=== PATIENT | female | born 1950 | race Caucasian/White ===

== ENCOUNTER 2024-12-13 12:08 | Outpatient (AMB) | payer BC, MEDICARE, SELFPAY ==
--- NOTE | 2024-12-13 12:18 | A.OFFVIS_ITS ---
Vital Signs 12/13/24 12:25 Height 5 ft 1.5 in Weight 187 lb 6.287 oz BMI 34.8 BP 130/80 Blood Pressure Location Rt brachial Position Sitting Pulse 94 Pulse Source Pulse Oximeter Pulse Oximetry (%) 97 Oxygen Delivery Method Room Air Intake Visit Reasons: Obesity Intake Note: New patient externally referred by PCP for Obesity management. Manufacturers Service Representative Required: No Accompanied by: Self / Same As Patient Allergies Opioids - Morphine Analogues Allergy (Verified 12/13/24 12:26) hives Medication List - Last Reconciled 12/13/24 by John Prince MD cholecalciferol (vitamin D3) 50 mcg PO DAILY lisinopril 10 mg PO DAILY lorazepam 0.5 mg PO DAILY PRN methocarbamol 750 mg PO Q8H pravastatin 20 mg PO DAILY tramadol 50 mg PO BID PRN HPI Comments Details: This is a 74-year-old female sent to endocrinology for evaluation of obesity. Doshi d breast ca and gained 30 lbs for 5 yrs . Off medication for 1 yr Wt stable over last yr . Patient has tried diets of wt watchers, , Nutrisystem, watching carbs . Patient has not seen warehouse foreman. The patient has tried weight loss medications of Phen/Fen in distant past . There are no symptoms of hypothyroidism or [place] syndrome. No snoring at nigt. No thyroid problems. [facility] Medical History (Updated 12/13/24 @ 13:00 by John Prince MD) Obesity Surgical History Hx of breast reconstruction Hx of right mastectomy History of surgery History of oophorectomy, unilateral History of total hip replacement History of tubal ligation Hx of cholecystectomy Physical Exam Vital Signs: Last Vital Signs Pulse 94 12/13/24 12:25 BP 130/80 12/13/24 12:25 Pulse Ox 97 12/13/24 12:25 Oxygen Delivery Method Room Air 12/13/24 12:25 BMI result Body Mass Index 34.8 Const Other: No cushingoid features. Thyroid gland is normal size weighs about 15 g. There are no thyroid nodules palpated Assessment & Plan Assessment & Plan (1) Obesity: Code(s): E66.9 - Obesity, unspecified Category: Medical Plan: This is a 74-year-old white female referred to endocrinology for obesity. There are no clear underlying endocrine etiology. Plan is to check TSH and free T4. Will also refer patient to warehouse foreman. Will discuss with patient use of weight loss medications including G LP 1 and G LP/GI P. We will hold off on this for now but may consider this in the future. Patient will follow up with Denise Khan NP in 1 month Orders: Orders Free T4 (Free Thyroxine) Today E66.9 - Obesity, unspecified Thyroid Stimulating Hormone Today E66.9 - Obesity, unspecified Referrals Nutrition/Dietitian Referral E66.9 - Obesity, unspecified Coding Level of Care Code New Pt Level 4 (34162) Diagnoses Obesity E66.9
[2024-12-13 12:25] VITALS: BP 130/80; PULSE 94; O2SAT 97; BMI 34.8
--- OUTSIDE RECORDS SUMMARY | 2024-12-13 13:46 | XMS_ITS | Clinical Summary ---
Author Organization [facility] Facility Address [address] [place] [id number] Care Team Providers Care Shot Tube Machine Tender Name Role Phone Minoo De Paz MD Primary Care Provider Allergies Active Allergy Reactions Criticality Noted Date Comments Bee Venom Anaphylaxis High 09/13/2018 Cephalexin 01/07/2022 Other reaction(s): rash Hydrocodone-Acetaminop hen Hives 11/11/2016 Other reaction(s): hives, itching Iodinated Contrast Media Hives 12/09/2016 Other reaction(s): hives Morphine Swelling,Other (see comments) 11/11/2016 Sulfa Antibiotics 01/07/2022 Other reaction(s): Patient reported, rash Medications anastrozole (ARIMIDEX) 1 MG chemo tablet Take 1 mg by mouth daily 07/11/2020 Active LORazepam (ATIVAN) 0.5 MG tablet Take 0.5 mg by mouth every night 11/19/2020 Active pravastatin (PRAVACHOL) 20 MG tablet Take 20 mg by mouth daily Active traMADol (ULTRAM) 50 MG tablet Take 50 mg by mouth every 8 (eight) hours if needed 11/25/2020 Active lisinopril 10 MG tablet Take 10 mg by mouth 1 (one) time each day Active cholecalciferol (VITAMIN D-3) 50 MCG (2000 UT) capsule Take 1 capsule (2,000 Units total) by mouth 1 (one) time each day 90 capsule 5 08/30/2024 Active Active Problems Problem Noted Date Diagnosed Date Hypertension 01/07/2022 Major depression in remission 01/07/2022 Migraine with typical aura 01/07/2022 Restless legs 01/07/2022 Venous varices 01/07/2022 Hematuria, not otherwise specified 12/09/2021 Renal scarring 12/09/2021 Malignant tumor of breast 11/30/2018 Overview (12/08/2021): Overview: 09/2018 Right, DCIS Stage 3a chronic kidney disease 07/28/2018 Vitamin D deficiency, not otherwise specified History of gastrointestinal bleed 07/28/2018 Osteoarthritis 07/28/2018 Overview (12/08/2021): Overview: Cervical,Thoracic & Lumbosacral Spine, Hips, Malignant neoplasm of middle lobe of lung 2016 Dyslipidemia 11/11/2016 Resolved Problems Problem Noted Date Diagnosed Date Resolved Date Absence of breast 01/07/2022 01/05/2023 Benign polyp of colon 01/07/20222022 Chronic thoracic back pain 01/07/2022 0 01/05/2023 Cramp 01/07/2022 01/05/2023 Cyst of pancreas 01/07/2022 01/05/2023 Degenerative joint disease i nvolving multiple joints 01/07/2022 01/05/2023 Insomnia 01/07/2022 01/05/2023 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 01/05/2023 H/O: malignant neoplasm 01/07/2022 03/0 05/2023 Hypertensive heart disease w ithout heart failure 12/18/2020 12/09/2021 Diverticular disease 07/28/2018 023 Depressive disorder 07/28/2018 01/06/20 23 History of squamous cell carcinoma 07/28/2018 01/05/2023 Overview (12/08/2021): Overview: Right Middle Lobe, T1a, N0, RML Lobectomy, Overview: leg History of repair of hip joint 07/28/2018 01/05/2023 Overview (12/08/2021): Overview: Right Hip pain 11/27/2016 01/05/2023 Adenocarcinoma of right lung 11/26/2016 01/05/2023 Immunizations Name Administration Dates Next Due Influenza Split High Dose Pr eservative Free IM 08/01/2019,10/10/2017,08/02/2013 Pneumococcal Conjugate 13-Valent 10/10/2017 Family History Medical History Relation Comments Cancer Father kidney cancer Diabetes Father Kidney disease Father kidney cancer Hypertension Sibling Relation Status Comments Father Mother Alive Sibling Social History Tobacco Use Types Packs/Day Years Used Date Smoking Tobacco: Former Cigarettes Smokeless Tobacco: Former Comments:Smoking History Inf o:Every day Alcohol Use Standard Drinks/Week Comments No 0 (1 standard drink = 0.6 oz pur e alcohol) Comments Unknown Sex and Gender Information Value Date Recorded Sex Assigned at Not on file Legal Sex Female 5:08 PM EST Gender Identity Not on file Sexual Orientation Not on file Last Filed Vital Signs Vital Sign Reading Time Taken Comments Blood Pressure 136/98 01/06/2023 10:19 AM EST Pulse 98 01/06/2023 10:19 AM EST Temperature - - Respiratory Rate - - Oxygen Saturation 97% 01/06/2023 10:19 AM EST Inhaled Oxygen Concentration - - Weight 86.4 kg (190 lb 6.4 oz) 01/06/2023 10:19 AM EST Height 157.5 cm (5' 2 ) 01/06/2023 10:19 AM EST Body Mass Index 34.82 01/06/2023 10:19 AM EST Plan of Treatment Health Maintenance Due Date Last Done Comments Breast Cancer Screening 1950 Colorectal Cancer Screening: Annual FOBT 2000 Colorectal Cancer Screening: Colonoscopy 2000 Colorectal Cancer Screening: Sigmoidoscopy 2000 Hepatitis B Vaccine (1 of 3 - Risk 3-dose series) 2011 Influenza Vaccine (#1) 2024 0, 08/03/2019, 08/01/2019, Additional history exists Pneumococcal Vaccine: 65+ Years Completed 09/01/2019, 11/30/2017, 11/30/2017, Additional history exists Insurance [facility] Care Teams Shot Tube Machine Tender Relationship Specialty Start Date End Date Minoo De Paz MD [address] [place] [id number] PCP - General Internal Medicine 12/18/20
--- OUTSIDE RECORDS SUMMARY | 2024-12-13 13:46 | XMS_ITS | Clinical Summary ---
Author Organization [facility] Address [address] [place] [address] Phone Care Team Providers Care Industrial Therapist Name Role Phone Minoo De Paz MD Primary Care Provider Allergies Active Allergy Reactions Criticality Noted Date Comments Bee Venom Protein (Honey Bee) Anaphylaxis High 09/13 Hydrocodone-Acetaminophen 07/28/2018 Iodinated Contrast Media 11/20/2020 Morphine 07/28/2018 Medications cholecalciferol (VITAMIN D-3) 50 mcg (2,000 unit) tablet Take 1 tablet (2,000 Units total) by mouth 1 (one) time each day. Active LISINOPRIL ORAL Take by mouth. Active LORazepam (ATIVAN) 0.5 mg tablet Take 1 tablet (0.5 mg total) by mouth every 6 hours as needed. Max Daily Amount: 2 mg Active pravastatin (PRAVACHOL) 20 mg tablet Take 1 tablet (20 mg total) by mouth 1 (one) time each day. 06/07/2022 Active traMADoL (ULTRAM) 50 mg tablet Take 1 tablet (50 mg total) by mouth every 6 hours as needed for moderate pain or severe pain. 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 ? Secondary to PCEA. Epidural capped. Dc COLORER and transition to PO pain meds. Prefers not to take NSAIDS given h/o CKD. CV: Telemetry. Home Crestor. Pulm: CT to WS, check 4h CXR. Ambulate. Nebs prn. Wean O2. GI: ADAT. Bowel regimen. Antiemetics prn. : Dc Rose - DTV. K/Mg scales. Heme: SQ Heparin ppx. Hct 34 (38.6) - will repeat late AM and if stable dc daniella. Malignant neoplasm of middle lobe of right lung 12/08/2016 Bilateral hip pain 11/27/2016 Hyperlipidemia 11/11/2016 Encounters Date Type Department Care Team Description 12/11/2024 9:53 AM [facility] - 12/11/2024 11:59 PM [facility] Hospital Encounter [facility] CT Scan [address] [place] [phone] 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) Discharge Disposition: Home or Self Care 12/11/2024 9:35 AM EST - 12/11/2024 11:59 PM [facility] [address] [place] [phone] Encounter for screening mammogram for breast cancer Discharge Disposition: Home or Self Care from Last 3 Months Immunizations Name Administration Dates Next Due Pfizer SARS-CoV-2 COVID-19, mRNA, LNP-S, preservative free 01/15/2021,12/27/2020 Surgical History Surgery Date Site/Laterality Comments MASTECTOMY Right 2018 Medical History Medical History Date Comments Vitamin D deficiency 07/28/2018 DX:Vitamin D deficiency Osteoarthritis of spine 07/28/2018 DX:Osteo arthritis of spine;COMMENT:Cervical, Thoracic & Lumbosacral Depression 07/28/2018 DX:Depression Diverticulosis 07/28/2018 DX:Diverticulosi s ESRD (end stage renal diseas e) ([facility]) 07/28/2018 DX:ESRD (end stage renal dis ease) ([facility]) Hip joint replacement status 07/28/2018 DX: Hip joint replacement status History of GI bleed 07/28/2018 DX:History o f GI bleed Breast cancer ([facility]) Social History Tobacco Use Types Packs/Day Years Used Date Smoking Tobacco: Former Cigarettes Q uit: 04/18/2017 Smokeless Tobacco: Never Alcohol Use Standard Drinks/Week Comments No 0 (1 standard drink = 0.6 oz pur e alcohol) Comments No Sex and Gender Information Value Date Recorded Sex Assigned at Not on file Legal Sex Female 8:39 AM EST Gender Identity Not on file Sexual Orientation Not on file Obstetrics History Para Term AB IAB SAB Ectopic Multiple Livin g Live Births 2 Last Filed Vital Signs Vital Sign Reading Time Taken Comments Blood Pressure 131/65 06/14/2024 11:13 AM EDT Sitting Left arm Pulse 78 06/14/2024 11:13 AM EDT Temperature - - Respiratory Rate - - Oxygen Saturation - - Inhaled Oxygen Concentration - - Weight 86.2 kg (190 lb) 12/11/2024 9:42 AM EST Height 157.5 cm (5' 2 ) 12/11/2024 9:42 AM EST Body Mass Index 34.75 12/11/2024 9:42 AM EST Plan of Treatment Upcoming Encounters Date Type Department Care Team (Late st Contact Info) Description 12/27/2024 11:30 AM EST Office Visit [facility] Hematology Oncology [address] [place] [phone] Carolyn Perez, [address] [place] [address] Health Maintenance Due Date Last Done Comments Hepatitis A Vaccines (1 of 2 - Risk 2-dose series) 1970 Hepatitis B Vaccines (1 of 3 - Risk 3-dose series) 2011 RSV Immunization Patients 60+ Years Old (1 - Risk 60-74 years 1-dose series) 2011 DTaP,Tdap,and Td Vaccines (2 - Tdap) 01/31/2019 01/31/2009 COVID-19 Vaccine (3 - Pfizer risk series) 02/12/2021 01/15/2021, 12/27/2020 Cholesterol Screening (Lipid Panel) 10/09/2022 Colorectal Cancer Screening: Colonoscopy 10/09/2022 Depression Screening 10/09/2022 Falls Risk Assessment 10/09/2022 Hepatitis C Screening 10/09/2022 Lung Cancer Screening (Low Dose CT) 10/09/2022 Medicare Annual Wellness Visit 10/09/2022 Social Influencers of Health Screening 10/09/2022 Influenza Vaccine (#1) 2024 , 08/27/2022, 08/15/2021, Additional history exists Hypertension/CHF/CAD Annual BMP Blood Test 12/11/2024 Breast Cancer Screening 12/11/2026 12/11/2024, 08/31 Osteoporosis Screening (Bone Density Screening) 12/10/2033 12/10/2023, 12/09/2022, 12/08/2021, Additional history exists Pneumococcal Vaccine: 50+ Years Completed 09/01/2019, 11/30/2017, 10/10/2017 Zoster Vaccines Completed 05/15/2024, 02/25/2024 HIB Vaccines Aged Out No longer eligi ble based on patient's age to complete this topic HPV Vaccines Aged Out No longer eligi ble based on patient's age to complete this topic IPV Vaccines Aged Out No longer eligi ble based on patient's age to complete this topic MMR Vaccines Aged Out No longer eligi ble based on patient's age to complete this topic Meningococcal ACWY Vaccine Aged Out N o longer eligible based on patient's age to complete this topic Meningococcal B Vacine Aged Out No lo nger eligible based on patient's age to complete this topic RSV Immunization Patients Under 20 months Aged Out No longer eligible based on patient's age to complete this topic Varicella Vaccines Aged Out No longer eligible based on patient's age to complete this topic Procedures Procedure Name Priority Date/Time Associated Diagnosis Comments CT CHEST WO CONTRAST Routine 12/11/2024 10:34 AM EST 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) MG MAMMO DIGITAL SCREENING W KYLER LEFT Routine 12/11/2024 9:48 AM EST Encounter for screening mammogram for breast cancer HENRI DEXA AXIAL SKELETON Routine 12/10/2023 12:03 PM EST Encounter for screening for osteoporosis from Last 3 Months or Most Recently Relevant to Health Maintenance Results * CT Chest wo Contrast (12/11/2024 10:34 AM EST) Anatomical Region Laterality Modality Body Computed Tomogra phy 12/12/2024 4:16 AM EST Impressions 12/12/2024 4:29 AM EST Right middle lobectomy with scattered groundglass nodules; similar to most recent prior. -------- FINAL REPORT -------- Dictated By: Itzel Carr Dictated Date: 12/12/2024 04:16 ET Assigned Physician: Itzel Carr Reviewed and Electronically Signed By: Itzel Carr Signed Date: 12/12/2024 04:29 ET Workstation ID: [id number] Transcribed By: Self Edit Transcribed Date: 12/12/2024 04:16 ET Narrative 12/12/2024 4:29 AM EST INDICATION: ??Non-small cell lung cancer, monitor. ??History of right-sided DCIS and right lung cancer status post right middle lobe wedge resection. TECHNIQUE: Multiple contiguous axial CT images were obtained of the chest without intravenous contrast. ??Multiplanar reformats were created and interpreted. The CT scanner utilized low-dose iterative reconstruction technique with automatic exposure control based on patient size. DLP: ??841.09 mGy-cm COMPARISON: ??December 2023. ??May 2023. FINDINGS: Lack of intravenous contrast limits evaluation of the mackenzie, vascular structures and abdominal viscera. ?? LUNGS/PLEURA: Central airways are patent. ??Postsurgical appearance right middle lobe. Bilateral groundglass pulmonary nodules similar to prior. ??For example: 9 mm groundglass nodule right upper lobe (image 68); similar to 2022 9 mm groundglass nodule/opacity in the right lower lobe (image 133); new from 2022 and similar to December 2023 6 mm groundglass nodule left lung apex (image 40); similar to 2022 7 mm groundglass nodule right lung apex (image 39); similar to 2022 ?? MEDIASTINUM: Thyroid gland is unremarkable. ??No enlarged mediastinal lymph nodes. ??Nonenlarged right hilar lymph nodes. ??Nonenlarged pericardial lymph nodes. ??Mild coronary artery calcifications. MISCELLANEOUS: Right breast implant. ??No axillary lymphadenopathy. UPPER ABDOMEN: ??Hepatic steatosis. ??Status post cholecystectomy. BONES AND SOFT TISSUES: Scattered degenerative changes Procedure Note Itzel Carr MD - 12/12/2024 INDICATION: Non-small cell lung cancer, monitor. History of right-sidedDCIS and right lung cancer status post right middle lobe wedgeresection. TECHNIQUE: Multiple contiguous axial CT images were obtained of the chestwithout intravenous contrast. Multiplanar reformats were created andinterpreted. The CT scanner utilized low-dose iterative reconstructiontechnique with automatic exposure control based on patient size. DLP: 841.09 mGy-cm COMPARISON: December 2023. May 2023. FINDINGS: Lack of intravenous contrast limits evaluation of the mackenzie,vascular structures and abdominal viscera. LUNGS/PLEURA: Central airways are patent. Postsurgical appearance rightmiddle lobe. Bilateral groundglass pulmonary nodules similar to prior. For example: 9 mm groundglass nodule right upper lobe (image 68); similar to 2022 9 mm groundglass nodule/opacity in the right lower lobe (image 133); newfrom 2022 and similar to December 2023 6 mm groundglass nodule left lung apex (image 40); similar to 2022 7 mm groundglass nodule right lung apex (image 39); similar to 2022 MEDIASTINUM: Thyroid gland is unremarkable. No enlarged mediastinal lymphnodes. Nonenlarged right hilar lymph nodes. Nonenlarged pericardiallymph nodes. Mild coronary artery calcifications. MISCELLANEOUS: Right breast implant. No axillary lymphadenopathy. UPPER ABDOMEN: Hepatic steatosis. Status post cholecystectomy. BONES AND SOFT TISSUES: Scattered degenerative changes IMPRESSION: Right middle lobectomy with scattered groundglass nodules; similar to mostrecent prior. -------- FINAL REPORT -------- Dictated By: Itzel Carr Dictated Date: 12/12/2024 04:16 ET Assigned Physician: Itzel Carr Reviewed and Electronically Signed By: Itzel Carr Signed Date: 12/12/2024 04:29 ET Workstation ID: [id number] Transcribed By: Self Edit Transcribed Date: 12/12/2024 04:16 ET Carolyn Perez DO IMG CT PROCEDURES Fin al Result * MG Mammo Digital Screening w Kyler Left (12/11/2024 9:48 AM EST) Anatomical Region Laterality Modality Breast Left Mammography 12/12/2024 12:4 8 PM EST Impressions 12/12/2024 12:54 PM EST No mammographic evidence of malignancy. BI-RADS: ??Category 1: Negative RECOMMENDATION(S): 1: Routine screening mammogram LEFT in 1 year. -------- FINAL REPORT -------- Dictated By: COLE AUGUSTE Dictated Date: 12/12/2024 12:48 ET Assigned Physician: COLE AUGUSTE Reviewed and Electronically Signed By: COLE AUGUSTE Signed Date: 12/12/2024 12:54 ET Workstation ID: [id number] Transcribed By: Self Edit Transcribed Date: 12/12/2024 12:48 ET Narrative 12/12/2024 12:54 PM EST EXAM: MG MAMMO DIGITAL SCREENING W KYLER LEFT EXAM DATE AND TIME: 12/11/2024 9:38 AM HISTORY: screening; the patient has a history of right breast cancer treated with mastectomy in 2018. COMPARISON: 12/10/2023 through 06/14/2020 TECHNIQUE: Left digital breast tomosynthesis was performed in the MLO projection. Computer aided detection with St[employer] 3D 3.1 was employed. TISSUE DENSITY: b: There are scattered areas of fibroglandular density. FINDINGS: No suspicious masses, grouped microcalcifications, or areas of architectural distortion are seen. ??The skin and vascularity are unremarkable. Procedure Note Cole Auguste MD - 12/12/2024 EXAM: MG MAMMO DIGITAL SCREENING W KYLER LEFT EXAM DATE AND TIME: 12/11/2024 9:38 AM HISTORY: screening; the patient has a history of right breast cancertreated with mastectomy in 2018. COMPARISON: 12/10/2023 through 06/14/2020 TECHNIQUE: Left digital breast tomosynthesis was performed in the MLOprojection. Computer aided detection with Strevus 3D 3.1 wasemployed. TISSUE DENSITY: b: There are scattered areas of fibroglandular density. FINDINGS: No suspicious masses, grouped microcalcifications, or areas ofarchitectural distortion are seen. The skin and vascularity areunremarkable. IMPRESSION: No mammographic evidence of malignancy. BI-RADS: Category 1: Negative RECOMMENDATION(S): 1: Routine screening mammogram LEFT in 1 year. -------- FINAL REPORT -------- Dictated By: COLE AUGUSTE Dictated Date: 12/12/2024 12:48 ET Assigned Physician: COLE AUGUSTE Reviewed and Electronically Signed By: COLE AUGUSTE Signed Date: 12/12/2024 12:54 ET Workstation ID: [id number] Transcribed By: Self Edit Transcribed Date: 12/12/2024 12:48 ET us Self Referral Sppl IMG BI PROCEDURES Final Resul t * HENRI DEXA AXIAL SKELETON (12/10/2023 12:03 PM EST) Anatomical Region Laterality Modality Mammography 12/10/2023 9:21 AM EST Narrative 12/10/2023 12:03 PM EST [facility] Diagnostic Imaging Department [address] [place] [id number] Patient: ??TELMA RODRÍGUEZ ?/Age/Sex: 1950 - 73 - F Unit#: ??[id number] ? Location/Status: ??SPDIMAM/REG CLI ? Mnemonic/Ordering Site: ??MAMDEXAAX/SPMAM Ordering Physician: ??CAROLYN PEREZ Henri Dexa Axial Skeleton - 12/10/23 - 1019 Report Status:Signed HISTORY: ??The patient is a 73-year-old postmenopausal female with clinical concern for metabolic bone disease. ??The patient is undergone previous bilateral hip replacement surgery. FINDINGS: ??Dual energy x-ray absorptiometry of the lumbar spine is performed. The mean bone mineral density at L1-3 is 1.067 gm/cm2 which is 91% of that of young normals and 103% of that of age matched controls. This yields a T-score of -0.9 and a Z-score of 0.2 and there is therefore no evidence of osteoporosis or osteopenia here. IMPRESSION: ?? There is no evidence of osteoporosis or osteopenia. ??There has been a decrease of 0.3% in bone mineral density in the lumbar spine since the prior examination of 12/08/2021. Code 07849 Dictating Physician: ??ANAHI MATHIAS MD Electronically Signed by: ??ANAHI MATHIAS MD Dic Date/Time: ??12/10/23 1201 Sign date/Time: ??12/10/23 1203 Procedure Note Anahi Mathias MD - 06/19/2024 [facility] Diagnostic Imaging Department [address] [place] [address] Patient: KELLITELMA D.O.B./Age/Sex: 1950 - 73 - F Unit#: [id number] Location/Status: SPDIMAM/REG CLI Mnemonic/Ordering Site: MAMDEXAAX/SPMAM Ordering Physician: CAROLYN PEREZ Henri Dexa Axial Skeleton - 12/10/23 - 1019 Report Status:Signed HISTORY: The patient is a 73-year-old postmenopausal female withclinical concern for metabolic bone disease. The patient is undergone previousbilateral hip replacement surgery. FINDINGS: Dual energy x-ray absorptiometry of the lumbar spine isperformed. The mean bone mineral density at L1-3 is 1.067 gm/cm2 which is 91% of thatof young normals and 103% of that of age matched controls. This yields aT-score of -0.9 and a Z-score of 0.2 and there is therefore no evidence ofosteoporosis or osteopenia here. IMPRESSION: There is no evidence of osteoporosis or osteopenia. Therehas been a decrease of 0.3% in bone mineral density in the lumbar spine sincethe prior examination of 12/08/2021. Code 34120 Dictating Physician: ANAHI MATHIAS MD Electronically Signed by: ANAHI MATHIAS MD Dic Date/Time: 12/10/23 1201 Sign date/Time: 12/10/23 1203 us Carolyn Perez DO IMG BI PROCEDURES Fin al Result from Last 3 Months or Most Recently Relevant to Health Maintenance Insurance MEDICARE [facility] ([facility] Care Teams Industrial Therapist Relationship Specialty Start Date End Date Minoo De Paz MD [address] [place] [phone] PCP - General 03/15/20
--- OUTSIDE RECORDS SUMMARY | 2024-12-13 13:46 | XMS_ITS | Encounter Summary ---
Author Organization [facility] Address [address] [place] [address] Care Team Providers Care Aircraft Log Clerk Name Role Phone Minoo De Paz MD Primary Care Provider [phone] Reason for Visit * Imaging (Routine) - Authorized Specialty Diagnoses / Procedures Referred By Diya t Referred To Contact Radiology Diagnoses Encounter for screening mammogram for breast cancer Procedures MG Mammo Digital Screening w Kyler Left MG Mammo Digital Screening w Kyler bilat Sppl, Self Referral [facility] Referral ID Status Reason Start Date Expiration Date V isits Requested Visits Authorized [id number] Authorized 10/17/2024 10/17/2025 1 1 Encounter Details Date Type Department Care Team (Latest Contact Info) Description 12/11/2024 9:35 AM EST - 12/11/2024 11:59 PM [facility] [address] [phone] Encounter for screening mammogram for breast cancer Discharge Disposition: Home or Self Care Social History Tobacco Use Types Packs/Day Years [...] on file Sexual Orientation Not on file documented as of this encounter Last Filed Vital Signs Vital Sign Reading Time Taken Comments Blood Pressure - - Pulse - - Temperature - - Respiratory Rate - - Oxygen Saturation - - Inhaled Oxygen Concentration - - Weight 86.2 kg (190 lb) 12/11/2024 9:42 AM EST Height 157.5 cm (5' 2 ) 12/11/2024 9:42 AM EST Body Mass Index 34.75 12/11/2024 9:42 AM EST documented in this encounter Medications at Time of Discharge cholecalciferol (VITAMIN D-3) 50 mcg (2,000 unit) tablet Take 1 tablet (2,000 Units total) by mouth 1 (one) time each day. LISINOPRIL ORAL Take by mouth. LORazepam (ATIVAN) 0.5 mg tablet Take 1 tablet (0.5 mg total) by mouth every 6 hours as needed. Max Daily Amount: 2 mg pravastatin (PRAVACHOL) 20 mg tablet Take 1 tablet (20 mg total) by mouth 1 (one) time each day. 06/07/2022 traMADoL (ULTRAM) 50 mg tablet Take 1 tablet (50 mg total) by mouth every 6 hours as needed for moderate pain or severe pain. Max Daily Amount: 200 mg documented as of this encounter Discharge Disposition Disposition Code Departure Means Destination Home or Self Care documented in this encounter Plan of Treatment Upcoming Encounters Date Type Department Care Team (Late st Contact Info) Description 12/27/2024 11:30 AM EST Office Visit [facility] Hematology Oncology [address] [place] [phone] Jaclyn Montemayor DO [address] [place] [address] documented as of this encounter Procedures Procedure Name Priority Date/Time Associated Diagnosis Comments MG MAMMO DIGITAL SCREENING W KYLER LEFT Routine 12/11/2024 9:48 AM EST Encounter for screening mammogram for breast cancer documented in this encounter Results * MG Mammo Digital Screening w Kyler [...] Signed Date: 12/12/2024 12:54 ET Workstation ID: [id number] Transcribed By: Self Edit Transcribed Date: 12/12/2024 [...] the MLO projection. Computer aided detection with [employer] AI 3D 3.1 was employed. TISSUE DENSITY: b: [...] in the MLOprojection. Computer aided detection with [employer] AI 3D 3.1 wasemployed. TISSUE DENSITY: b: There [...] Signed Date: 12/12/2024 12:54 ET Workstation ID: [id number] Transcribed By: Self Edit Transcribed Date: 12/12/2024 12:48 ET us Self Referral Sppl IMG BI PROCEDURES Final Resul t documented in this encounter Visit Diagnoses Diagnosis Encounter for screening mammogram for breast cancer documented in this encounter Care Teams Aircraft Log Clerk Relationship Specialty Start Date End Date Minoo De Paz MD [address] [place] [address] PCP - General 03/15/20 documented as of this encounter
--- OUTSIDE RECORDS SUMMARY | 2024-12-13 13:46 | XMS_ITS | Encounter Summary ---
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) Procedures CT Chest wo Contrast Jaclyn Montemayor DO [address] [place] [address] Phone: tel: fax: [address] [phone] Phone: tel: Referral ID Status Reason Start Date Expiration Date V isits Requested Visits Authorized [id number] Authorized 10/26/2024 10/26/2025 1 1 Reason for Visit * Imaging (Routine) - Authorized Specialty Diagnoses / Procedures Referred By Contac t Referred To Contact Radiology Diagnoses 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) Procedures CT Chest wo Contrast Jaclyn Montemayor DO [address] [place] [address] Phone: tel: fax: [address] [phone] Phone: tel: Referral ID Status Reason Start Date Expiration Date V isits Requested Visits Authorized [id number] Authorized 10/26/2024 10/26/2025 1 1 Encounter Details Date Type Department Care Team (Latest Contact Info) Description 12/11/2024 9:53 AM EST - 12/11/2024 11:59 PM EST Hospital Encounter [facility] CT Scan [address] [place] [phone] 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) Discharge Disposition: Home or Self Care Social [...] on file documented as of this encounter Medications at Time of Discharge [...] Description 12/27/2024 11:30 AM EST Office Visit [facility] Hematology Oncology [address] [place] [phone] Jaclyn Montemayor, [address] [place] [address] documented as of this encounter Procedures Procedure Name Priority Date/Time Associated Diagnosis Comments CT CHEST WO CONTRAST Routine 12/11/2024 10:34 AM EST 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) documented in this encounter Results * CT Chest wo Contrast (12/11/2024 [...] Signed Date: 12/12/2024 04:29 ET Workstation ID: [id number] Transcribed By: Self Edit Transcribed Date: 12/12/2024 [...] Signed Date: 12/12/2024 04:29 ET Workstation ID: [id number] Transcribed By: Self Edit Transcribed Date: 12/12/2024 04:16 ET us Jaclyn Montemayor DO IMG CT PROCEDURES Fin al Result documented in this encounter Visit Diagnoses Diagnosis 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
--- OUTSIDE RECORDS SUMMARY | 2024-12-13 13:46 | XMS_ITS | Data Portability ---
Author Organization [place] - [facility], [facility] Office Address [address], [address] [place] [address] Assessment Encounter Date Assessment Date Assessment LastModified by Organization Details LastModified Time 03/30/2023 03/30/2023 We discussed her diagnosis. Spinal stenosis. Discussed that spinal stenosis has as a cardinal symptom neurogenic claudication which is lower extremity pain with walking. Instead she gets only low back pain. Given her atypical presentation we discussed treatment options. We started with nonoperative treatments which she is largely done the most of. She does have a potential RFA upcoming which she had several questions about. My opinion is reasonable to exhaust all nonoperative treatment options prior to considering operative intervention. Regarding operative intervention we discussed the role of laminectomy. The primary outcome regarding laminectomy is typically relief of lower extremity symptoms which she has none of. I did discuss that surgery could be considered however she would risk the possibility of surgery might not change her back pain symptoms. However she may find herself in a situation where she has no options other than to consider and undertake surgical intervention understanding the range of clinical outcomes that could be expected and what may or may not change, especially her back pain. She would like to undergo the RFA and if the RFA is not successful she will consider returning for consideration of operative intervention [email or web address] Not available 03/30/2023 13:53:14 Plan of Treatment Reminders Order Date Submit Date Provider Last Modified By Organization Details Last Modified Time Details Appointments None record ed. Lab None record ed. Referral None record ed. Procedures None record ed. Surgeries None record ed. Imaging None record ed. Medication Orders None record ed. Patient TargetsNo targets recorded. Patient Instructions Encounter Date Encounter Id Patient Instructions Last Modified By Organization Details Last Modified Time 03/30/2023 [id number] Possible L3-4 L4-5 UBLD (biportal endoscopic decompression) [email or web address] Not available 03/30/2023 13:58:51 Reason for Referral None Reported. Problems Name Problem SNOMED Code Status Onset Date Resolution Date Notes Provider Name and Address Organization Details Recorded Time Spinal stenosis of lumbar region 40724736 Active 023 Not Available [employer] 13:53:15 Chronic low back pain 908994600 Active 023 Not Available [employer] 10:59:48 Problem Notes None recorded. Procedures Surgical History Date Name Laterality Status Provider Name and Address Organization Details Recorded Time Orthopaedic Surgery completed Janny Mcmanus MA [facility] 03/30/2023 11:39:35 Imaging Results None recorded. Procedure Notes None recorded. Medical Equipment None Reported. Vitals None Recorded Social History Question Answer Notes LastModified by Organization D etails LastModified Time Are You Currently Employed? No [email or web address] Information not available 03/30/2023 Sex: Unknown Functional Status None recorded. Mental Status None recorded. Family History Relationship Description Onset Age of this Age Resolved Age Notes LastModified by Organization Details LastModified Time Unspecified Relation History of anesthesia problem [email or web address] Not available 11:39:09 Medical History Condition Response High Blood Pressure Y Weight Gain / Loss Y Osteoarthritis / Rheumatoid arthritis / Other Y Cancer Y Gynecological HistoryNo gynecological history recorded. Obstetrics History GPAL:G 0 P 0 0 0 0 Past Encounters Encounter ID Performer Location Encounter Start Date Encounter Closed Date Diagnosis/Indication Diagnosis SNOMED-CT Code Diagnosis ICD10 Code Diagnosis Note [id number] IZABELA CROWE MD [facility] Office [address] [place] [id number] 03/30/2023 09:51:10 03/30/2023 12:18:10 Spinal stenosis of lumbar region 95700976 M48.061 Chronic low back pain 28 8263317 M54.50 Health Concerns Section Related Observation LastModified by Organization Detai ls LastModified Time None Recorded Concern Status LastModified by Organization Details LastModified Time None Recorded Advance Directives Directive None Recorded Payers Encounter Date Sequence Insurance Name Policy Number Policy Enamorado Covered Member ID Enamorado Member ID Guarantor Name 03/30/2023 2 [place]ICARE [place]: [employer] Telma Rodríguez [id number] 3 Telma Marcos 03/30/2023 1 [place]: [place] ([facility] [id number] R Harpreet Conte Goldykatherineshant [id number] Telma Marcos Notes Date Note Type Note Provider Name and Address Organization Details Recorded Time 03/30/2023 text/html Chief complaint low back pain for several years Patient describes pain in both right and left sides pain at the lumbosacral junction without any pain radiating to the buttock thigh calf. Denies numbness or tingling in the lower extremities. She denies any urinary retention or any numbness around her vagina or labia or anus. She undergone years of treatment including physical therapy for a year at least, she has had several injections which provided relief only for 20 minutes but otherwise several other subsequent injections have not improved her pain. She notes her pain is substantially worse with standing or walking sitting she has no pain at all. MRI 05/25/2022 L3-4 bilateral lateral recess and central stenosis L4-5 bilateral lateral recess and central stenosis. IZABELA CROWE MD [address] [place] [address], [phone], [facility] 03/30/2023 13:59:01 OBGyn Episode No OBEpisode recorded.
--- OUTSIDE RECORDS SUMMARY | 2024-12-13 13:46 | XMS_ITS | Clinical Summary ---
Author Organization [facility] Address [address] [place] [address] Care Team Providers Care Heavy Equipment Sales Associate Name Role Phone Minoo De Paz MD Primary Care Provide r Allergies Active Allergy Reactions Criticality Noted Date Comments Bee Sting 09/13/2018 Iodinated Contrast Media 11/20/2020 Morphine 09/13/2018 Hydrocodone-Acetaminophen 09/13/2018 Medications Medication Sig Dispensed Refills Start Date End Date Status traMADol (ULTRAM) 50 MG tablet Take 50 mg by mouth every 6 (six) hours as needed for pain. 0 Active Cholecalciferol 2000 units TABS Take 2,000 Units by mouth daily. 0 Active LORazepam (ATIVAN) 0.5 MG tablet Take 0.5 mg by mouth every 6 (six) hours as needed. 0 Active pravastatin (PRAVACHOL) tablet 20 mg Take 20 mg by mouth daily. 0 Active LISINOPRIL PO Take by mouth. 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 05/12/2023 Osteopenia 05/12/2023 Breast cancer 11/30/2018 Overview: Overview: 09/2018 Right, DCIS History of lung cancer 11/30/2018 Overview: Overview: Right Middle Lobe, T1a, N0, RML Lobectomy, CKD (chronic kidney disease) stage 3, GFR 30-59 ml/min 07/28/2018 Depression 07/28/2018 Diverticulosis 07/28/2018 Hip joint replacement status 07/28/2018 Overview: Overview: Right History of GI bleed 07/28/2018 History of squamous cell carcinoma 07/28/2018 Overview: Overview: leg Osteoarthritis 07/28/2018 Overview: Overview: Cervical,Thoracic & Lumbosacral Spine, Hips, Vitamin D deficiency 07/28/2018 Primary lung adenocarcinoma 12/14/2016 Overview: Last Assessment & Plan: Neuro: C/o R arm numbness and eye droop overnight, improved this AM. ? Secondary to PCEA. Epidural capped. Dc RETAIL ADVISOR and transition to PO pain meds. Prefers [...] 12/08/2016 Bilateral hip pain 11/27/2016 Hyperlipidemia 11/11/2016 Social History Tobacco Use Types Packs/Day Years Used Date Smoking Tobacco: Former Cigarettes Q uit: 04/18/2017 Smokeless Tobacco: Never Alcohol Use Standard Drinks/Week Comments No 0 (1 standard drink = 0.6 oz pur e alcohol) Sex and Gender Information Value Date Recorded Sex Assigned at Not on file Gender Identity Not on file Sexual Orientation Not on file Job Start Date Occupation Industry Not on file Not on file Not on file Last Filed Vital Signs Vital Sign Reading Time Taken Comments Blood Pressure 131/65 06/14/2024 11:13 AM EDT Pulse 78 06/14/2024 11:13 AM EDT Temperature 36.5 ??C (97.7 ??F) 06/14/2024 11:13 AM E DT Respiratory Rate - - Oxygen Saturation 99% 06/14/2024 11:13 AM EDT Inhaled Oxygen Concentration - - Weight 82.1 kg (181 lb) 04/18/2020 10:35 AM EDT Height 157.5 cm (5' 2 ) 12/15/2023 11:07 AM EST Body Mass Index 33.11 04/18/2020 10:35 AM EDT Plan of Treatment Health Maintenance Due Date Last Done Comments Hepatitis C Screening 1950 Depression Screening 1963 BMI Counseling 1969 Preventative Health Evaluation 1969 DTap / Tdap / Td (1 - Tdap) 1970 Shingrix-Zoster Vaccine (1 of 2) 1970 Colon Cancer Screening (Colonoscopy) 1996 Breast Cancer Screening (Mammogram) 2001 Fall Risk Assessment 2016 Osteoporosis Screening (DEXA Scan) 2016 COVID-19 Vaccine (3 - Pfizer risk series) 02/12/2021 01/15/2021, 12/27/2020 Influenza Vaccine (#1) 2024 , 08/27/2022, 08/15/2021, Additional history exists RSV Adult > 60+ Yrs or (1 - 1-dose 75+ series) 2026 Pneumococcal Vaccine Completed 09/01/2019, 11/30/2017, 11/30/2017, Additional history exists Hepatitis B Vaccines Aged Out No long er eligible based on patient's age to complete this topic RSV Ped < 20 months Aged Out No longe r eligible based on patient's age to complete this topic Care Teams Heavy Equipment Sales Associate Relationship Specialty Start Date End Date Minoo De Paz MD PCP - General Internal Medicine 03/15/20
== END 2024-12-13 13:41 | disposition home or self-care (01) ==
PROVIDERS: PCP Internal Medicine; Visit Provider Internal Medicine Endocrinology, Diabetes & Metabolism
DX: E66.9 Obesity, unspecified (principal)
CPT/HCPCS: 99204